=== PATIENT | female | born 1975 | race Caucasian/White ===

== ENCOUNTER 2018-12-31 20:30 | Observation (INO) ==
--- NOTE | 2018-12-31 20:54 | Emergency Department Note ---
Disposition Clinical Impression: Palpitations Back pain Qualifiers: Back pain location: thoracic back pain Chronicity: acute Back pain laterality: midline Qualified Code(s): M54.6 - Pain in thoracic spine Disposition: Still a Patient Referrals: NONE,PCP [Primary Care Provider] - Forms: ED Satisfaction Letter General Adult HPI - General Chief complaint: ED Arrhythmia/Palpitations Stated complaint: PALPITATIONS Time Seen by Provider: 12/31/18 20:44 Source: patient Nursing Notes Reviewed: Yes Vital Signs Reviewed: Yes - History of Present Illness HPI Narrative: Patient with a history of [address] Grullon placed 3 or 4 years ago presents today with almost 1 hour of palpitations as well as back pain which is similar but not identical to the pain that she had when she had a cardiac stents placed. She does have palpitations with some associated dizziness. Denies any anterior chest pain. No exertional component or dyspnea or diaphoresis but she has had significant fatigue over the last several weeks. No pain or swelling of the lower extremities. Social history: Smoker. Family h istory: Positive for heart disease with her father. Pain Scale: 6 - Related Data Home Medications Medication Instructions Recorded Confirmed Aspirin 81 mg PO QAM 10/31/15 11/27/18 Metoprolol [Lopressor] 5 mg IV Q6HR 11/27/18 11/27/18 Previous Rx's Medication Instructions Recorded Atorvastatin [Lipitor] 80 mg PO HS #30 tablet 07/22/15 Fluticasone Propionate Nasal 2 spray NS DAILY #1 bottle 11/27/18 [Flonase] Promethazine/Dextromethorphan 5 ml PO Q6HR PRN #90 ml 11/27/18 [Promethazine-Dm Syrup] Allergies Allergy/AdvReac Type Severity Reaction Status Date / Time hydrocodone [From Vicodin] AdvReac Vomiting Verified 12/31/18 20:34 oxycodone [From Percocet] AdvReac Vomiting Verified 12/31/18 20:34 All systems ED: reviewed and negative except as stated. 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 - Social History Smoking Status: Current every day smoker Smokeless Tobacco Status: No Alcohol use: Reports: none Drug use: Reports: none Physical Exam CONSTITUTIONAL: Well-appearing; well-nourished; A&O X 3, in no apparent distress HEAD: Normocephalic; atraumatic EYES: PERRL, no scleral icterus NOSE: The nose is normal in appearance without rhinorrhea NECK: No JVD or distended neck veins RESP: Normal chest excursion with respiration; breath sounds clear and equal bilaterally; no wheezes, rhonchi, or rales CARD: Regular rhythm, without murmurs, rub or gallop ABD: Non-distended; non-tender, soft, without rigidity, rebound or guarding,no pulsatile mass CHEST: No pain with palpation SKIN: Normal for age and race; warm and dry without diaphoresis ; no apparent lesions EXTREMITIES: Pulses are 2 plus and equal times 4 extremities, no peripheral edema or calf muscle pain - General General appearance: alert, in no apparent distress Course Vital Signs Temperature 98.3 F 12/31/18 20:34 Pulse Rate 101 12/31/18 20:34 Respiratory Rate 18 12/31/18 20:34 Blood Pressure 168/95 12/31/18 20:34 O2 Sat by Pulse Oximetry 98 12/31/18 20:34 Temperature 98.3 F 12/31/18 20:34 Pulse Rate 100 12/31/18 20:46 Respiratory Rate 20 12/31/18 20:46 Blood Pressure 163/101 12/31/18 20:46 O2 Sat by Pulse Oximetry 100 12/31/18 20:46 Oxygen Delivery Oxygen Delivery Room Air Medical Decision Making - [facility] Narrative Medical decision making narrative: On the service the patient's symptoms are minimal however with the knowledge that she also has back pain which was similar to the pain she had before the stents replaced with a cardiac stents this does place her with a heart score of 4 placing her in a moderate risk category and with the very recent onset of pain it was difficult to exclude heart disease with a troponin test as we would likely not see changes for her to 6 hours after onset of discomfort so at this point the patient will have initial labs including troponin ordered the patient will be admitted for further inpatient follow-up. I did review her EKG showing normal sinus rhythm with a rate of 91 and some T-wave flattening in lead aVL but otherwise without acute ischemic change or evidence of arrhythmia. 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 Finally, did confirm that this was also pleuritic type of pain so a d-dimer will be done and also in light of her tachycardia when she f irst presented with a rate of 101 we will further evaluate for pulmonary embolism. 2054 I did speak with Dr. Ernandez who accepts transition of care with this patient as the d-dimer did come back positive and a CTA is ordered and results are pending 2151 - Medical Records Medical records reviewed: Yes I reviewed the patient's medical records. - Lab Data Lab results reviewed: Yes I reviewed the patient's lab results. Result diagrams: 12/31/18 20:49 12/31/18 20:49 Lab Results 12/31/18 12/31/18 12/31/18 Range/Units 20:49 20:49 20:56 WBC 10.1 (4.3-11.1) K/mcL RBC 5.05 H (3.82-4.97) M/mcL Hgb 15.1 (11.5-15.4) g/dL Hct 44.3 (35.3-44.9) % MCV 87.7 (83.0-100.0) fL MCH 29.9 (28.0-33.3) pg MCHC 34.1 (31.6-35.5) g/dL RDW 13.5 (11.5-14.5) % Plt Count 196 (140-400) K/mcL MPV 11.4 (9.4-12.4) fL D-Dimer 628 H (0-500) ng/mLFEU Sodium 130 L (136-145) mEq/L Potassium 3.7 (3.5-5.1) mEq/L Chloride 97 L (98-107) mEq/L Carbon Dioxide 24 (23-29) mEq/L BUN 9 (6-20) mg/dL Creatinine 0.76 (0.60-1.20) mg/dL Est GFR ( Amer) > 60 (> 60) Est GFR (Non-Af Amer) > 60 (> 60) BUN/Creatinine Ratio 12 (6-26) Glucose 434 H (70-105) mg/dL Calculated Osmolality 287 (280-300) Calcium 9.0 (8.6-10.3) mg/dL Troponin I < 0.03 (< 0.04) ng/mL
[2018-12-31 21:04] LABS: Hematocrit 44.3 % (35.3-44.9); Hemoglobin 15.1 g/dL (11.5-15.4); Mean Corpuscular HGB Conc 34.1 g/dL (31.6-35.5); Mean Corpuscular Hemoglobin 29.9 pg (28.0-33.3); Mean Corpuscular Volume 87.7 fL (83.0-100.0); Mean Platelet Volume 11.4 fL (9.4-12.4); Platelet Count 196 K/mcL (140-400); Red Blood Count 5.05 M/mcL (3.82-4.97); Red Cell Distribution Width 13.5 % (11.5-14.5)
[2018-12-31] MEDS ORDERED: Isovue-370 500 ML BOTTLE IVP ONE (21:24)
[2018-12-31 21:32] LABS: BUN/Creatinine Ratio 12 (6-26); Blood Urea Nitrogen 9 mg/dL (6-20); Carbon Dioxide 24 mEq/L (23-29); Chloride 97 mEq/L (98-107); Glucose 434 mg/dL (70-105); Osmolality,Calculated 287 (280-300); Potassium 3.7 mEq/L (3.5-5.1); Sodium 130 mEq/L (136-145); Troponin I < 0.03 ng/mL (< 0.04); eGFR For Non-African Americans > 60 (> 60)
--- NOTE | 2018-12-31 21:50 | Emergency Department Note ---
Disposition Clinical Impression: Palpitations, Pulmonary nodules Chest pain Qualifiers: Chest pain type: unspecified Qualified Code(s): R07.9 - Chest pain, unspecified Disposition: Admitted As Inpatient Condition: Good Referrals: NONE,PCP [Primary Care Provider] - Forms: ED Satisfaction Letter Time of Disposition: 23:31 General Adult HPI - General Chief complaint: ED Arrhythmia/Palpitations Stated complaint: PALPITATIONS Time Seen by Provider: 12/31/18 20:44 Source: patient - History of Present Illness Pain Scale: 6 - Related Data Home Medications Medication Instructions Recorded Confirmed Aspirin 81 mg PO QAM 10/31/15 11/27/18 Metoprolol [Lopressor] 5 mg IV Q6HR 11/27/18 11/27/18 Previous Rx's Medication Instructions Recorded Atorvastatin [Lipitor] 80 mg PO HS #30 tablet 07/22/15 Fluticasone Propionate Nasal 2 spray NS DAILY #1 bottle 11/27/18 [Flonase] Promethazine/Dextromethorphan 5 ml PO Q6HR PRN #90 ml 11/27/18 [Promethazine-Dm Syrup] Allergies Allergy/AdvReac Type Severity Reaction Status Date / Time hydrocodone [From Vicodin] AdvReac Vomiting Verified 12/31/18 20:34 oxycodone [From Percocet] AdvReac Vomiting Verified 12/31/18 20:34 Past Medical History - Past Medical History Medical history: Reports: hypertension, other Surgical history: Reports: angioplasty/stent (x2), cholecystectomy, ureteral stent Psychiatric history: Reports: anxiety, panic disorder 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 Trejo. 43 year old female presents to the ED with chest pain and midly tacycardiac and appears to have an elevated D-dimer. She also has a ACS history with two cardiac stents. If the CTA is negative we will this admit to medicine for ACS workup. - Consultations Consultation #1: discussed case with Dr. Rios and he accepts patient to his service. He is requesting PT/INR and lovenox therapy. Time: 23:30 Vital Signs Temperature 98.3 F 12/31/18 20:34 Pulse Rate 101 12/31/18 20:34 Respiratory Rate 18 12/31/18 20:34 Blood Pressure 168/95 12/31/18 20:34 O2 Sat by Pulse Oximetry 98 12/31/18 20:34 Temperature 98.3 F 12/31/18 20:34 Pulse Rate 100 12/31/18 20:46 Respiratory Rate 20 12/31/18 20:46 Blood Pressure 163/101 12/31/18 20:46 O2 Sat by Pulse Oximetry 100 12/31/18 20:46 Oxygen Delivery Oxygen Delivery Room Air Medical Decision Making - Lab Data Result diagrams: 12/31/18 20:49 12/31/18 20:49 Lab Results 12/31/18 12/31/18 12/31/18 Range/Units 20:49 20:49 20:56 WBC 10.1 (4.3-11.1) K/mcL RBC 5.05 H (3.82-4.97) M/mcL Hgb 15.1 (11.5-15.4) g/dL Hct 44.3 (35.3-44.9) % MCV 87.7 (83.0-100.0) fL MCH 29.9 (28.0-33.3) pg MCHC 34.1 (31.6-35.5) g/dL RDW 13.5 (11.5-14.5) % Plt Count 196 (140-400) K/mcL MPV 11.4 (9.4-12.4) fL D-Dimer 628 H (0-500) ng/mLFEU Sodium 130 L (136-145) mEq/L Potassium 3.7 (3.5-5.1) mEq/L Chloride 97 L (98-107) mEq/L Carbon Dioxide 24 (23-29) mEq/L BUN 9 (6-20) mg/dL Creatinine 0.76 (0.60-1.20) mg/dL Est GFR ( Amer) > 60 (> 60) Est GFR (Non-Af Amer) > 60 (> 60) BUN/Creatinine Ratio 12 (6-26) Glucose 434 H (70-105) mg/dL Calculated Osmolality 287 (280-300) Calcium 9.0 (8.6-10.3) mg/dL Troponin I < 0.03 (< 0.04) ng/mL
[2018-12-31] MEDS ORDERED: Aspirin 325 MG TABLET PO ONE (23:26)
[2018-12-31] MEDS ORDERED: *HR* Enoxaparin 40 MG/0.4 ML SYRINGE SQ ONE (23:28)
[2019-01-01 00:36] LABS: INR 0.8; Prothrombin Time 9.4 Seconds (9.4-12.1)
[2019-01-01 00:38] LABS: Activated Partial Thrombo Time 29.7 Seconds (26.0-36.0)
[2019-01-01] MEDS ORDERED: Naloxone 0.4 MG/ML INJ IVP PRN (03:15)
[2019-01-01] MEDS ORDERED: D5% in Water 1,000 ML IVC PRN (03:15)
[2019-01-01] MEDS ORDERED: *HR* Dextrose 50 % in Water (Syg) 50 ML SYRINGE IVP PRN (03:15)
[2019-01-01] MEDS ORDERED: Dextrose Gel 15 GM/37.5 ML TUBE PO PRN ×2 (03:15)
[2019-01-01] MEDS ORDERED: Acetaminophen 325 MG TABLET PO PRN (03:17)
--- NOTE | 2019-01-01 03:28 | Internal Med History&Physical ---
Date of Encounter: 01/01/19 Time of Encounter: 02:40 Internal Medicine - H&P: HPI Chief complaint: palpitations; chest pain Admitted From: Emergency Dept Plans for Post Hospital Care: Home History of present illness: Ms. Lindsay is a 43 year old female who presents to ER with complaints of chest pain, palpitations, and fluttering in her chest. Workup in the ER was essentially negative, but she was admitted to hospitalist service. She did have a d-dimer which was elevated. CT angiogram of the chest was negative. I did ask the ER to give a one-time dose of Lovenox for concerns of possible DVT. Upon my assessment of the patient, she is resting in bed comfortably. She denies any chest pain presently. She has minimal shortness of breath and coughing from chronic smoking. She complains mostly of palpitations she has been having the last couple of days. She has had some vague chest tightness with them. She denies any pain or swelling in her legs, she has had some subtle cramping of her left leg. Patient did have a heart catheterization roughly 2 years ago, which revealed minimal coronary artery disease. She was also found to have significant hyperglycemia on her routine labs in the ER. She denies any history of diabetes. However, she does confirm having symptoms of polydipsia and polyuria over the last several weeks. Past Med Surg Social Fam HX - Past Medical History Attestation: Yes The following information was validated with the patient. Source: patient, old records reviewed, obtained from family Medical history: hypertension, kidney stones, myocardial infarction, other Additional medical history: heart attack, 2 heart stents Psychiatric history: anxiety, panic disorder - Past Surgical History Surgical History: angioplasty/stent, cholecystectomy, ureteral stent Additional surgical history: cardiac stent x 2 - Social History Smoking Status: Current every day smoker Packs per day: 1 Smokeless Tobacco Status: No Alcohol use: none Drug use: none Current living situation: Home, With Family Activity Level: Independent ambulation Recent Out of Country Travel Within the Last 8 Weeks: No - Family History Paternal Grandmother Hx Family Endocrine Disorder: Yes (DM) Maternal Grandmother Hx Family Endocrine Disorder: Yes (DM) Father Family Member Ethnicity: Non- Living Status: Hx Family Cardiac Disorders: Yes (CHF) Hx Family Respiratory Disorders: No Hx Family Cancer: No Hx Family GI Disorders: No Hx Family Endocrine Disorder: No Hx Family Neuromuscular Disorders: No Hx Family Neurologic Disorders: No Hx Family HEENT Disorders: No Hx Family Autoimmune Disorders: No Internal Medicine - H&P: Meds Aspirin 81 mg PO QAM 10/31/15 [History] Metoprolol [Lopressor] 12.5 mg PO BID 12/31/18 [History] Allergy/AdvReac Type Severity Reaction Status Date / Time hydrocodone [From Vicodin] AdvReac Vomiting Verified 12/31/18 20:34 oxycodone [From Percocet] AdvReac Vomiting Verified 12/31/18 20:34 - Constitutional Constitutional: no chills, no fever(s), no night sweats - EENT Eyes: no blurry vision, no change in vision Ears: no ear pain, no tinnitus Nose, mouth and throat: no nasal congestion, no sinus pressure, no sore throat - Cardiovascular Cardiovascular ROS IM: chest pain, dyspnea on exertion, palpitations, no dyspnea, no edema, no lightheadedness, no paroxysmal nocturnal dyspnea, no syncope - Respiratory Respiratory: cough (chronic), no hemoptysis, no chest congestion, no excessive phlegm production, no change in phlegm color, no pain with cough - Gastrointestinal Gastrointestinal: no abdominal pain, no diarrhea, no hematemesis, no hematochezia, no melena, no nausea, no vomiting - Genitourinary Genitourinary: no dysuria, no flank pain, no hematuria - Musculoskeletal Musculoskeletal ROS IM: no arthralgias, no back pain - Integumentary Integumentary IM: no rash, no jaundice - Neurological Neurological ROS: no dizziness, no focal weakness, no frequent falls, no headache(s) - Psychiatric Psychiatric: no anxiety, no depression - Endocrine Endocrine IM: polydipsia, polyuria, no cold intolerance, no heat intolerance, no polyphagia - Allergic/Immunologic Allergic/Immunologic: no wheezing, no GI upset with certain foods - Constitutional Vitals: Temp Pulse Resp BP Pulse Ox 97.7 F 84 16 108/66 96 01/01/19 02:33 01/01/19 02:33 01/01/19 02:33 01/01/19 02:33 01/01/19 02:33 General appearance: Present: cooperative, A&O X 3, pleasant, no acute distress, answers questions appropriately Exam: see below - Head Head exam: Present: atraumatic, normal inspection - Eye Eye exam: Present: EOMI, PERRL. Absent: scleral icterus Pupils: Present: normal accommodation - ENT ENT exam: Present: mucous membranes dry, normal exam, normal oropharynx - Neck Neck exam general surgery: Present: full ROM, supple. Absent: tenderness, nuchal rigidity, thyromegaly - Respiratory Respiratory exam: Present: rhonchi. Absent: chest wall tenderness, rales, respiratory distress, wheezes, tachypnea - Cardiovascular Cardiovascular exam: Present: distant heart sounds, RRR, +S1, +S2. Absent: diastolic murmur, systolic murmur - GI/Abdominal GI/Abdominal exam: Present: normal bowel sounds, soft. Absent: guarding, hepatomegaly, rebound, splenomegaly, tenderness - Extremities Exam Extremities exam: Present: full ROM, normal capillary refill, warm, radial pulses palpable and symmetrical. Absent: calf tenderness, pedal edema, tenderness - Back Exam Back exam: Absent: CVA tenderness (L), CVA tenderness (R) - Neurological Exam Neurological exam: Present: alert, CN II-XII intact, oriented X3, no focal deficits - Psychiatric Psychiatric exam: Present: normal affect, normal mood - Skin Skin exam: Present: dry, intact, warm Internal Med - H&P Results - Labs CBC & Chem 7: 12/31/18 20:49 12/31/18 20:49 Labs: Short CBC 12/31/18 Range/Units 20:49 WBC 10.1 (4.3-11.1) K/mcL Hgb 15.1 (11.5-15.4) g/dL Hct 44.3 (35.3-44.9) % Plt Count 196 (140-400) K/mcL BMP 12/31/18 20:49 Sodium 130 L Potassium 3.7 Chloride 97 L Carbon Dioxide 24 BUN 9 Creatinine 0.76 Glucose 434 H Calcium 9.0 Cardiac Enzymes 12/31/18 Range/Units 20:49 Troponin I < 0.03 (< 0.04) ng/mL - EKG Data -: EKG Interpreted by Myself - EKG Data Prior EKG available for review: no EKG comments: 01/01/19 03:36 NSR; non-specific T wave flattening - Impressions ITS Impressions Chest X-Ray 12/31/18 20:50 IMPRESSION: No acute process. D/ / Brady Mcbride MD / Brady Mcbride MD Interpreting Provider: Brady Mcbride MD Chest CTA 12/31/18 21:24 IMPRESSION: 1. No scan evidence for pulmonary embolus. 2. Bronchial wall thickening may indicate bronchitis. 3. Multiple ground-glass pulmonary nodules. Recommend follow-up: CT at 3-6 months. Subsequent management based on the most suspicious nodule(s). 4. Tiny micronodules are probably granulomas. Follow-up for these: In a low-risk patient, no routine follow-up. In a high-risk patient, optional CT at 12 months. D/ / Danial Spicer MD / Dainal Spicer MD Interpreting Provider: Danial Spicer MD - Diagnostic Studies Chest x-ray Status: image reviewed by me (negative) - Assessment and plan (1) Chest pain Current Visit: Yes Status: Acute Assessment and plan: 1. Will cycle troponins and EKG's. 2. Will order ECHO and consult cardiology given her known CAD and risk factors. 3. Defer stress testing until BLE Dopplers rule out DVT. 4. Doppler of legs to rule out DVT. 5. Continue Lovenox 1 mg/kg Q 12h until Dopplers rule out DVT. Qualifiers: Chest pain type: unspecified Qualified Code(s): R07.9 - Chest pain, unspecified (2) Palpitations Current Visit: Yes Status: Acute Assessment and plan: 1. Will cycle troponins and check TSH. 2. Work-up as above. (3) Hyperglycemia Current Visit: Yes Status: Acute Assessment and plan: 1. Will order A1C and serial glucose checks. 2. Will order SSI. 3. Likely transition to PO oral agents prior to discharge. (4) DVT prophylaxis Current Visit: Yes Status: Acute Assessment and plan: 1. Lovenox as above.
[2019-01-01 04:51] LABS: Basophils # 0.1 K/mcL (0.0-0.2); Basophils % 0.8 %; Eosinophils # 0.3 K/mcL (0.0-0.6); Eosinophils % 2.7 %; Hematocrit 43.4 % (35.3-44.9); Hemoglobin 14.9 g/dL (11.5-15.4); Immature Granulocytes % 1.8 % (0-4); Lymphocytes # 3.2 K/mcL (0.6-4.6); Mean Corpuscular HGB Conc 34.3 g/dL (31.6-35.5); Mean Corpuscular Hemoglobin 30.7 pg (28.0-33.3); Mean Corpuscular Volume 89.3 fL (83.0-100.0); Mean Platelet Volume 11.8 fL (9.4-12.4); Monocytes # 0.7 K/mcL (0.0-1.3); Monocytes % 7.1 %; Neutrophils # 5.8 K/mcL (1.6-8.9); Platelet Count 187 K/mcL (140-400); Red Blood Count 4.86 M/mcL (3.82-4.97); Red Cell Distribution Width 13.4 % (11.5-14.5); Segmented Neutrophils % 56.6 %
[2019-01-01 05:37] LABS: Chol/HDL Ratio 15.3 (0-4.9); Cholesterol 414 mg/dL (< 200); HDL Cholesterol 27 mg/dL (40-59); Triglycerides 3434 mg/dL (< 150)
[2019-01-01 06:30] LABS: Alanine Aminotransferase 25 Units/L (7-52); Albumin 3.1 g/dL (3.5-5.7); Albumin/Globulin Ratio 1.3 (1.1-2.2); Alkaline Phosphatase 108 Units/L (34-104); Aspartate Amino Transferase 14 Units/L (13-39); BUN/Creatinine Ratio 19 (6-26); Bilirubin,Total 0.2 mg/dL (0.3-1.0); Blood Urea Nitrogen 10 mg/dL (6-20); Carbon Dioxide 23 mEq/L (23-29); Chloride 104 mEq/L (98-107); Globulin 2.4 g/dL (2.4-3.5); Glucose 336 mg/dL (70-105); Magnesium 1.8 mg/dL (1.6-2.6); Osmolality,Calculated 284 (280-300); Sodium 131 mEq/L (136-145); Total Protein 5.5 g/dL (6.4-8.9); eGFR For Non-African Americans > 60 (> 60)
[2019-01-01 08:27] LABS: Estimated Average Glucose 341 mg/dl; Hemoglobin A1C 13.5 %
[2019-01-01] MEDS ORDERED: *HR* Enoxaparin 80 MG/0.8 ML SYRINGE SQ SCH (09:00)
[2019-01-01] MEDS ORDERED: Aspirin 81 MG TAB.CHEW PO SCH (09:00)
[2019-01-01] MEDS: Insulin LISPRO 300 UNITS/3 ML VIAL SQ SCH ×2 (10:20→13:51)
[2019-01-01 11:41] VITALS: BP 123/82
--- NOTE | 2019-01-01 15:29 | Discharge Summary ---
- NOTES TO OUTPATIENT PROVIDER Notes to Outpatient Provider: Patient with history of coronary artery disease status post stents at a young age was hospitalized here after she presented to the ER with complaints of chest pain and palpitations and fluttering feeling in her chest. She was evaluated for a PE with a CT angiogram which was negative. She was also checked for DVT with venous Dopplers which were also negative. Troponins were trended which were negative. She underwent a 2-D echocardiogram which showed normal ejection fraction of 60%. She was recommended a cardiac stress test. However patient wishes to go home and have this done as outpatient instead. She follows up with cardiology here and I advised her that she call her office on Thursday to set up an appointment and get stress test done. She is chest pain-free currently and has not had any more chest pain since initially coming to the ER. Patient also had elevated blood sugars and has now been diagnosed with diabetes. Her A1c is 13%. She will be placed on metformin and glipizide and will follow up with her primary care provider for further management. Patient's CT angiogram showed multiple pulmonary nodules and recommended repeat CT scan in 3-6 months. Patient has been provided a prescription for this. Orders not resulted at time of discharge: Pending orders 12/31/18 20:43 ECG 12 lead ECG [ECG] Stat 01/01/19 06:00 ECG 12 lead ECG [ECG] AM 0600 01/02/19 07:00 NM anahi perf SPECT multi [NM] Routine 01/02/19 10:55 SP pharm nuclear stress Routine Date of Encounter: 01/01/19 Time of Encounter: 15:26 - Discharge Diagnosis (1) Chest pain Priority: Primary Status: Resolved Qualifiers: Chest pain type: other chest pain Qualified Code(s): R07.89 - Other chest pain; R07.8 - Other chest pain (2) Palpitations Priority: Secondary Status: Resolved (3) DVT prophylaxis Priority: Secondary Status: Acute (4) Diabetes mellitus, type 2 Priority: Secondary Status: Acute Qualifiers: Diabetes mellitus joint terminal attack controller insulin use: without joint terminal attack controller use Diabetes mellitus complication status: with hyperglycemia Qualified Code(s): E11.65 - Type 2 diabetes mellitus with hyperglycemia Hospital course: Ms. Lindsay is a 43 year old female Patient with history of coronary artery disease status post stents at a young age was hospitalized here after she presented to the ER with complaints of chest pain and palpitations and fluttering feeling in her chest. She was evaluated for a PE with a CT angiogram which was negative. She was also checked for DVT with venous Dopplers which were also negative. Troponins were trended which were negative. She underwent a 2-D echocardiogram which showed normal ejection fraction of 60%. She was recommended a cardiac stress test. However patient wishes to go home and have this done as outpatient instead. She follows up with cardiology here and I advised her that she call her office on Thursday to set up an appointment and get stress test done. She is chest pain-free currently and has not had any more chest pain since initially coming to the ER. Patient also had elevated blood sugars and has now been diagnosed with diabetes. Her A1c is 13%. She will be placed on metformin and glipizide and will follow up with her primary care provider for further management. Patient was evaluated and discharged after spts-to-izot visit greater than 8 hours since initial visit. Discharge discussed with: patient, nurse - Time Spent with Patient Total time spent providing and/or coordinating discharge services: Greater than 30 minutes (45 min) - Discharge Medications Prescriptions: Blood Sugar Diagnostic [Blood Glucose Test Strip] 1 each MC TID #120 strip Blood-Glucose Meter [Accu-Chek Guide Monitor System] 1 each MC TID #1 each Glipizide/Metformin HCl [Glipizide-Metformin 2.5-500 mg] 1 each PO BID #60 tablet Lancets 1 each MC TID #120 each Home Medications: Aspirin 81 mg PO QAM 10/31/15 [History] Metoprolol [Lopressor] 12.5 mg PO BID 12/31/18 [History] Blood Sugar Diagnostic [Blood Glucose Test Strip] 1 each MC TID #120 strip 01/01/19 [Rx] Blood-Glucose Meter [Accu-Chek Guide Monitor System] 1 each MC TID #1 each 01/01/19 [Rx] Glipizide/Metformin HCl [Glipizide-Metformin 2.5-500 mg] 1 each PO BID #60 tablet 01/01/19 [Rx] Lancets 1 each MC TID #120 each 01/01/19 [Rx] Allergies/Adverse Reactions: Allergy/AdvReac Type Severity Reaction Status Date / Time hydrocodone [From Vicodin] AdvReac Vomiting Verified 12/31/18 20:34 oxycodone [From Percocet] AdvReac Vomiting Verified 12/31/18 20:34 Date of admission: 12/31/18 23:33 Primary care physician: PCP NONE Discharging clinician: Luz Vallejo Anticipated date of discharge: 01/01/19 - Constitutional Vitals: Temp Pulse Resp BP Pulse Ox 98.3 F 80 16 123/82 94 01/01/19 11:35 01/01/19 11:35 01/01/19 11:35 01/01/19 11:35 01/01/19 11:35 General appearance: Present: cooperative, A&O X 3, pleasant, no acute distress, answers questions appropriately Exam: . - Respiratory Respiratory exam: Present: CTAB. Absent: accessory muscle use, rales, rhonchi, wheezes - Cardiovascular Cardiovascular exam: Present: RRR, +S1, +S2. Absent: diastolic murmur, gallop, rubs, systolic murmur - GI/Abdominal GI/Abdominal exam: Present: normal bowel sounds, soft, no peritoneal signs. Absent: distended, tenderness - Patient Status Disposition: Home, Self-Care Condition: Good Functional capacity at discharge: independent ambulation Overall status at discharge: patient is progressing back to baseline - Ambulatory Orders Ambulatory Orders: CT chest wo con [CT] Time Frame: 3 Months, Facility: [facility], Location: Radiology - Discharge Instructions Instructions: Diabetes Mellitus Type 2 in Adults (DC) Follow Up With: NONE,PCP [Primary Care Provider] - (With PCP in one week) - Diet and Activity Activity: increase activity as tolerated Diet: diabetic diet, low fat, low cholesterol, low salt diet
[2019-01-01] MEDS ORDERED: Insulin LISPRO 300 UNITS/3 ML VIAL SQ SCH (21:00)
--- NOTE | 2019-01-04 14:19 | Electrocardiograph Report ---
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
--- NOTE | 2019-01-04 17:19 | Electrocardiograph Report ---
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
== END 2019-01-01 15:58 | disposition home or self-care (01) ==
LOC: 3BNU 20:30 → EMEROOARM 20:30 → 3BNU 23:55
PROVIDERS: ADMIT Pediatrics; ATTEND Pediatrics